=== PATIENT | male | born 1970 | race Caucasian/White ===

== ENCOUNTER 2016-11-28 10:43 | Observation (INO) ==
[2016-11-28] MEDS ORDERED: GI Cocktail 40 ML EACH PO ONE (11:17)
[2016-11-28] MEDS ORDERED: 0.9 % Sodium Chloride 1,000 ML IVC ONE (11:18)
[2016-11-28] MEDS ORDERED: Ondansetron 4 MG/2 ML VIAL IVP ONE ×2 (11:18→12:37)
[2016-11-28 11:45] LABS: Basophils % 0.4 %; Hematocrit 41.1 % (37.5-50.1); Hemoglobin 14.4 g/dL (12.9-16.9); Immature Granulocytes % 0.3 % (0-4); Lymphocytes # 1.5 K/mcL (0.6-4.6); Lymphocytes % 14.5 %; Mean Corpuscular Hemoglobin 32.4 pg (28.0-33.3); Mean Corpuscular Volume 92.6 fL (83.0-100.0); Mean Platelet Volume 9.2 fL (9.4-12.4); Monocytes # 0.7 K/mcL (0.0-1.3); Monocytes % 6.4 %; Neutrophils # 8.2 K/mcL (1.6-8.9); Platelet Count 286 K/mcL (140-400); Red Blood Count 4.44 M/mcL (4.19-5.50); Red Cell Distribution Width 13.3 % (11.5-14.5); Segmented Neutrophils % 78.4 %
[2016-11-28 11:56] LABS: Prothrombin Time 10.7 Seconds (9.4-12.1)
[2016-11-28 11:59] LABS: Activated Partial Thrombo Time 27.1 Seconds (26.0-36.0)
[2016-11-28 12:00] LABS: BUN/Creatinine Ratio 10 (6-26); Blood Urea Nitrogen 11 mg/dL (8-26); Calcium 9.4 mg/dL (8.6-10.8); Carbon Dioxide 27 mEq/L (19-29); Chloride 105 mEq/L (98-109); Glucose 120 mg/dL (70-99); Osmolality,Calculated 293 (280-300); Potassium 3.9 mEq/L (3.5-4.5); Sodium 141 mEq/L (136-145); eGFR For African Americans > 60 (> 60); eGFR For Non-African Americans > 60 (> 60)
--- NOTE | 2016-11-28 12:23 | Emergency Department Note ---
Disposition Clinical Impression: Chest pain Qualifiers: Chest pain type: unspecified Qualified Code(s): R07.9 - Chest pain, unspecified Disposition: Admitted As Inpatient Condition: Good Referrals: NONE,PCP [Non-Partnered Physician] - Forms: ED Satisfaction Letter Chest Pain HPI - General Chief Complaint: ED Chest Pain Stated Complaint: CP Time Seen by Provider: 11/28/16 10:48 Source: patient Limitations: no limitations Vital Signs Reviewed: Yes Nursing Notes Reviewed: Yes - History of Present Illness HPI Narrative: Patient presents for evaluation of chest pain. Chest pain started last night at 12:00 and has associated dyspnea as well as nausea. Patient states that he has not been able to get any rest. His overall symptoms have all healed was at rest. He has not had any previous history of heart disease although heart disease does run in his family. He continues to be uncomfortable with this nausea and pain and wanting to get rest. The patient was given aspirin and nitroglycerin by squad. The nitroglycerin did help relieve his pain. He was given a GI cocktail in the emergency department which not affect his pain in any way. Overall the patient's EKG shows sinus bradycardia with a rate of 50 bpm. The significant elevations depressions or changes. Troponin is negative. Due to the patient's continued symptoms and family history and risk factors the patient will be brought into the hospital for further evaluation and continued monitoring. Severity scale (1-10): 3 - Related Data Home Medications Medication Instructions Recorded Confirmed Omeprazole 03/12/16 03/12/16 TraZODone 03/12/16 Previous Rx's Medication Instructions Recorded Cefdinir [Omnicef] 300 mg PO BID #20 capsule 03/12/16 Ibuprofen [Motrin] 800 mg PO Q8HR PRN #20 tablet 03/12/16 predniSONE [PredniSONE] 20 mg PO BID #10 tablet 03/12/16 Allergies Allergy/AdvReac Type Severity Reaction Status Date / Time No Known Allergies Allergy Verified 03/12/16 12:58 Review of Systems: CONSTITUTIONAL: No weight loss, fever, chills, weakness or fatigue. HEENT: Eyes: No visual changes. Ears, Nose, Throat: No hearing loss, difficulty talking or unable to swallow. SKIN: No rash or itching. CARDIOVASCULAR: Chest pain RESPIRATORY: Shortness of breath GASTROINTESTINAL: Nausea GENITOURINARY: No burning on urination or hematuria. NEUROLOGICAL: No headache, dizziness, syncope, paralysis, ataxia, numbness or tingling in the extremities. No change in bowel or bladder control. MUSCULOSKELETAL: No muscle pain, back pain, joint pain or stiffness. Chest Pain PMH - Past Medical History Medical history: Reports: GERD Psychiatric history: Reports: anxiety, depression - Social History Smoking Status: Current every day smoker Alcohol use: Reports: occasionally Drug use: Reports: none Physical Exam General appearance: NAD, conversant Eyes: anicteric sclerae, moist conjunctivae; PERRL HENT: Atraumatic; oropharynx clear with moist mucous membranes and no mucosal ulcerations Neck: Normal inspection; Trachea midline; FROM, supple Lungs: CTA, with normal respiratory effort and no intercostal retractions CV: RRR, no MRGs Abdomen: Soft, non-tender; no rebound or gaurding Extremities: No peripheral edema or extremity lymphadenopathy Skin: Normal temperature; no rash, ulcers or lesions Psych: Appropriate mood and affect Neuro: alert and oriented to person, place and time - General Limitations: no limitations General appearance: alert, in no apparent distress Course Course Narrative: EKG normal. Troponin negative. D-dimer negative. No abdominal tenderness. Continued symptoms despite treatment. Initial resolution with nitroglycerin. Will repeat that for trial. Patient will be brought in for further evaluation by the hospitalist team. - Consultations Consultation #1: Discussed with the hospitalist Dr. Whelan. Patient accepted for admission. Vital Signs Temperature 98 F 11/28/16 10:45 Pulse Rate 52 11/28/16 10:45 Respiratory Rate 16 11/28/16 10:45 Blood Pressure 129/83 11/28/16 10:45 O2 Sat by Pulse Oximetry 100 11/28/16 10:45 Temperature 98 F 11/28/16 10:45 Pulse Rate 65 11/28/16 12:53 Respiratory Rate 16 11/28/16 12:53 Blood Pressure 134/87 11/28/16 12:53 O2 Sat by Pulse Oximetry 98 11/28/16 12:53 Oxygen Delivery Oxygen Delivery Room Air Chest Pain - Medical Records Medical records reviewed: Yes I reviewed the patient's medical records. - Lab Data Lab results reviewed: Yes I reviewed the patient's lab results. Result diagrams: 11/28/16 11:11 11/28/16 11:11 Lab Results 0711/28/16 11/28/16 Range/Units 11:11 11:11 11:11 WBC 10.4 (4.3-11.1) K/mcL RBC 4.44 (4.19-5.50) M/mcL Hgb 14.4 (12.9-16.9) g/dL Hct 41.1 (37.5-50.1) % MCV 92.6 (83.0-100.0) fL MCH 32.4 (28.0-33.3) pg MCHC 35.0 (31.6-35.5) g/dL RDW 13.3 (11.5-14.5) % Plt Count 286 (140-400) K/mcL MPV 9.2 L (9.4-12.4) fL Immature Gran % 0.3 (0-4) % Seg Neutrophils % 78.4 % Lymphocytes % 14.5 % Monocytes % 6.4 % Eosinophils % 0.0 % Basophils % 0.4 % Neutrophils # 8.2 (1.6-8.9) K/mcL Lymphocytes # 1.5 (0.6-4.6) K/mcL Monocytes # 0.7 (0.0-1.3) K/mcL Eosinophils # 0.0 (0.0-0.6) K/mcL Basophils # 0.0 (0.0-0.2) K/mcL PT 10.7 (9.4-12.1) Seconds INR 1.0 APTT 27.1 (26.0-36.0) Seconds D-Dimer 405 (0-500) ng/mLFEU Sodium (136-145) mEq/L Potassium (3.5-4.5) mEq/L Chloride (98-109) mEq/L Carbon Dioxide (19-29) mEq/L BUN (8-26) mg/dL Creatinine (0.72-1.25) mg/dL Est GFR ( Amer) (> 60) Est GFR (Non-Af Amer) (> 60) BUN/Creatinine Ratio (6-26) Glucose (70-99) mg/dL Calculated Osmolality (280-300) Calcium (8.6-10.8) mg/dL Total Bilirubin (0.2-1.2) mg/dL Direct Bilirubin (0.0-0.5) mg/dL Indirect Bilirubin (0.0-1.2) mg/dL AST (5-34) Units/L ALT (0-55) Units/L Alkaline Phosphatase (38-126) Units/L Troponin I (0-0.03) ng/mL B-Natriuretic Peptide 175 H (0-100) pg/mL Serum Total Protein (6.0-8.3) g/dL Albumin (3.5-5.0) g/dL Globulin (2.4-3.5) g/dL Albumin/Globulin Ratio (1.1-2.2) Lipase (8-78) Units/L 11/28/16 11/28/16 Range/Units 11:11 11:11 WBC (4.3-11.1) K/mcL RBC (4.19-5.50) M/mcL Hgb (12.9-16.9) g/dL Hct (37.5-50.1) % MCV (83.0-100.0) fL MCH (28.0-33.3) pg MCHC (31.6-35.5) g/dL RDW (11.5-14.5) % Plt Count (140-400) K/mcL MPV (9.4-12.4) fL Immature Gran % (0-4) % Seg Neutrophils % % Lymphocytes % % Monocytes % % Eosinophils % % Basophils % % Neutrophils # (1.6-8.9) K/mcL Lymphocytes # (0.6-4.6) K/mcL Monocytes # (0.0-1.3) K/mcL Eosinophils # (0.0-0.6) K/mcL Basophils # (0.0-0.2) K/mcL PT (9.4-12.1) Seconds INR APTT (26.0-36.0) Seconds D-Dimer (0-500) ng/mLFEU Sodium 141 (136-145) mEq/L Potassium 3.9 (3.5-4.5) mEq/L Chloride 105 (98-109) mEq/L Carbon Dioxide 27 (19-29) mEq/L BUN 11 (8-26) mg/dL Creatinine 1.05 (0.72-1.25) mg/dL Est GFR ( Amer) > 60 (> 60) Est GFR (Non-Af Amer) > 60 (> 60) BUN/Creatinine Ratio 10 (6-26) Glucose 120 H (70-99) mg/dL Calculated Osmolality 293 (280-300) Calcium 9.4 (8.6-10.8) mg/dL Total Bilirubin 0.5 (0.2-1.2) mg/dL Direct Bilirubin 0.2 (0.0-0.5) mg/dL Indirect Bilirubin 0.3 (0.0-1.2) mg/dL AST 21 (5-34) Units/L ALT 23 (0-55) Units/L Alkaline Phosphatase 61 (38-126) Units/L Troponin I 0.01 (0-0.03) ng/mL B-Natriuretic Peptide (0-100) pg/mL Serum Total Protein 6.7 (6.0-8.3) g/dL Albumin 3.5 (3.5-5.0) g/dL Globulin 3.2 (2.4-3.5) g/dL Albumin/Globulin Ratio 1.1 (1.1-2.2) Lipase 26 (8-78) Units/L - Radiology Data Radiology results reviewed: Yes I reviewed the patient's radiology results. - EKG Data EKG attestation: Yes I reviewed and interpreted this EKG. EKG results narrative: EKG sinus bradycardia with ventricular rate of 50. IA interval 151. QRS 86. QTC 390. Patient hasan ST elevations or depressions. Patient has nonspecific T -wave changes. No previous EKG for comparison. Heart Score - Score History: Slightly Suspicious EKG: Non Specific repolarisation Disturbance Age: 45-65 Risk Factors: 1-2 risk factors Troponin: Less than normal limit HEART Score Total: 3 Attestation Statement - Attestation Attestation: I personally interviewed and examined this patient and my medical decision- making was reviewed with the Resident Physician, Dr. Monroy I agree with the documented findings, disposition and treatment plan as described except to the extent set forth below. Patient is a 46-year-old male who presents to the emergency room today with symptoms of chest pain since midnight with shortness of breath. Patient was having continued pain throughout the night and difficulty sleeping, and was brought here by EMS this morning with ongoing pain. EMS administered 4 baby aspirin and nitroglycerin trial which relieved patient's pain. Patient has a significant family history for cardiac disease but no other risk factors other than smoking. Patient is pain-free on arrival to the ED. I agree with patient's physical exam findings as documented. Patient's initial EKG showed a sinus bradycardia with no acute ischemic changes. Patient remained hemodynamically stable and pain-free throughout ED course. Patient had no recurrent pain while in the emergency department. Patient feels that rest is what helped his pain go away. Patient had lab evaluation including chest x-ray was all within normal limits including a negative d-dimer and negative initial troponin. Discussed with the patient concerns for his pain and shortness of breath with just seem worsened by exertion and recommended admission for further cardiac evaluation. Patient agrees with this plan and case was discussed with hospitalist.
[2016-11-28] MEDS: Nitroglycerin 0.4 MG TAB.SUBL SL PRN ×2 (12:45→12:53)
[2016-11-28 13:10] LABS: Alanine Aminotransferase 23 Units/L (0-55); Albumin 3.5 g/dL (3.5-5.0); Albumin/Globulin Ratio 1.1 (1.1-2.2); Alkaline Phosphatase 61 Units/L (38-126); Aspartate Amino Transferase 21 Units/L (5-34); Bilirubin,Direct 0.2 mg/dL (0.0-0.5); Bilirubin,Indirect 0.3 mg/dL (0.0-1.2); Bilirubin,Total 0.5 mg/dL (0.2-1.2); Globulin 3.2 g/dL (2.4-3.5); Lipase 26 Units/L (8-78); Total Protein 6.7 g/dL (6.0-8.3)
[2016-11-28] MEDS ORDERED: Ondansetron 4 MG/2 ML VIAL IVP PRN (13:37)
[2016-11-28] MEDS ORDERED: Acetaminophen 325 MG TABLET PO PRN (13:37)
[2016-11-28] MEDS ORDERED: Naloxone 0.4 MG/ML INJ IVP PRN (13:37)
[2016-11-28] MEDS ORDERED: *HR* LORazepam 2 MG/ML VIAL IVP PRN ×2 (13:42)
--- NOTE | 2016-11-28 14:15 | Internal Med History&Physical ---
<Trena Haque - Last Filed: 11/30/16 13:06> Date of Encounter: 11/30/16 Time of Encounter: 14:10 Assessment and Plan (1) Chest pain Status: Acute She has been experiencing midsternal chest pressure as nonradiating with some nausea. He does have a cardiac family history. He has not had a cardiac workup in the past. He does smoke and drinks alcohol. Troponin is negative we will continue cycle troponins and EKG was some slight ST elevations we will repeat EKG right now. 2 continue with aspirin 3 we will obtain a drug screen 4 continue with nitroglycerin 5 continuous cardiac monitoring 6 cardiac echo 7 nothing by mouth after midnight cardiac stress in a.m. 8 consult cardiology as needed 9 lipid panel Qualifiers: Chest pain type: unspecified Qualified Code(s): R07.9 - Chest pain, unspecified (2) Alcohol abuse Status: Acute 1 patient has admitted to drinking both beer and alcohol almost on a daily basis. His last drink was 7 PM last night. We will initiate CIWA protocol (3) Tobacco abuse Status: Acute 1 encourage patients to stop smoking. Nicotine patch (4) DVT prophylaxis Status: Acute 1 Lovenox subcutaneous Internal Medicine - H&P: HPI Chief complaint: CP Admitted From: Emergency Dept Plans for Post Hospital Care: Home History of present illness: Mr. Hooks is a 46 year old male past medical history of GERD tobacco abuse alcohol use. According to patient he was in his usual state of health up until approximately 11 PM last night he began to feel nauseated and experienced midsternal nonradiating chest pressure which was constant no aggravating or relieving factors. He rated pain 5/ 10. He was unable to sleep all night due to the pain. He presented to the ER with above complaints for arrival they did give him nitroglycerin plus a GI cocktail pain was unresolved. Patient does smoke half pack a day as well as he drinks approximately 3 beers every day or every other day. She does drink a bottle of whiskey at least once a month. His last drink was at 7 PM last night. Lab work was unremarkable troponin was 0.0 on chest x-ray with no acute process . He has been admitted for further workup evaluation. Presently patient is to be respiratory distress. He states the pain is aching and constant 5 out of 10. He does have some nausea. Lung sounds are clear heart sounds are regular S1 and S2 with no rubs clicks gallops murmurs noted. He is sinus rhythm and sinus bradycardia on the monitor. EKG with slight ST elevation in 2 3 AVF. we will repeat Vital signs are stable this time. I reviewed case with Dr Whelan who agrees with plan. Past Med Surg Social Fam HX - Past Medical History Medical history: GERD Psychiatric history: anxiety, depression - Social History Smoking Status: Current every day smoker Smokeless Tobacco Status: No Alcohol use: occasionally Drug use: none - Family History Mother Hx Family Cardiac Disorders: Yes (heart disease ) Father Living Status: Still Living Hx Family Cardiac Disorders: Yes ( heart disease ) Internal Medicine - H&P: Meds Omeprazole [PriLOSEC] 40 mg PO DAILY 03/12/16 [History] traZODone [TraZODone] 50 mg PO HS 03/12/16 [History] Aspirin 81 mg PO DAILY #30 11/29/16 [Rx] Gabapentin [Neurontin] 100 mg PO HS #30 capsule 11/29/16 [Rx] Nicotine Patch [Nicoderm] 14 mg TD DAILY #28 11/29/16 [Rx] Allergies No Known Allergies Allergy (Verified 03/12/16 12:58) All Systems PM: A 10-system review of systems was performed and is negative for pertinent findings except as documented above in the HPI. - Constitutional Constitutional: no chills, no fever(s), no night sweats - EENT Eyes: no change in vision, no discharge, no pain, no photophobia Nose, mouth and throat: no dysphagia, no nasal discharge, no neck pain, no sore throat - Cardiovascular Cardiovascular ROS IM: chest pain, no diaphoresis, no dyspnea, no lightheadedness, no palpitations, no syncope - Respiratory Respiratory: no cough, no dyspnea, no wheezing, no excessive phlegm production - Gastrointestinal Gastrointestinal: nausea, no abdominal pain, no diarrhea, no hematemesis, no hematochezia, no melena, no vomiting - Musculoskeletal Musculoskeletal ROS IM: muscle cramps, no numbness, no tingling - Integumentary Integumentary IM: no rash, no unusual bruising - Neurological Neurological ROS: no confusion, no convulsions, no focal weakness, no numbness, no tingling, no tremor(s) - Hematologic/Lymphatic Hematologic/Lymphatic: no easy bruising - Constitutional Vitals: Temp Pulse Resp BP Pulse Ox 98 F 52 16 137/79 96 11/28/16 10:45 11/28/16 13:40 11/28/16 13:40 11/28/16 13:40 11/28/16 13:40 General appearance: Present: A&O X 3, answers questions appropriately - Head Head exam: Present: atraumatic, normocephalic - Eye Eye exam: Present: PERRL, conjuntiva pink, sclera anicteric Pupils: Present: PERRL - Neck Neck exam general surgery: Present: supple, trachea midline. Absent: lymphadenopathy - Respiratory Respiratory exam: Present: CTAB. Absent: accessory muscle use, rales, rhonchi, wheezes - Cardiovascular Cardiovascular exam: Present: RRR, +S1, +S2. Absent: diastolic murmur, gallop, rubs, systolic murmur - GI/Abdominal GI/Abdominal exam: Present: normal bowel sounds, soft, no peritoneal signs. Absent: distended, tenderness - Extremities Exam Extremities exam: Present: warm, radial pulses palpable and symetrical. Absent : calf tenderness, cyanotic, pedal edema - Neurological Exam Neurological exam: Present: CN II-XII intact, oriented X3, no focal deficits. Absent: pronater drift, facial droop, speech deficit - Skin Skin exam: Present: dry, intact Internal Med - H&P Results - Labs CBC & Chem 7: 11/29/16 00:15 11/29/16 00:15 Labs: Short CBC 11/28/16 Range/Units 11:11 WBC 10.4 (4.3-11.1) K/mcL Hgb 14.4 (12.9-16.9) g/dL Hct 41.1 (37.5-50.1) % Plt Count 286 (140-400) K/mcL Neutrophils # 8.2 (1.6-8.9) K/mcL BMP 11/28/16 11:11 Sodium 141 Potassium 3.9 Chloride 105 Carbon Dioxide 27 BUN 11 Creatinine 1.05 Glucose 120 H Calcium 9.4 Cardiac Enzymes 11/28/16 Range/Units 11:11 Troponin I 0.01 (0-0.03) ng/mL Liver Function 11/28/16 Range/Units 11:11 Total Bilirubin 0.5 (0.2-1.2) mg/dL Direct Bilirubin 0.2 (0.0-0.5) mg/dL AST 21 (5-34) Units/L ALT 23 (0-55) Units/L Alkaline Phosphatase 61 (38-126) Units/L Albumin 3.5 (3.5-5.0) g/dL - EKG Data EKG shows normal: sinus rhythm - Impressions ITS Impressions Chest X-Ray 11/28/16 10:52 IMPRESSION: No acute cardiopulmonary abnormality. D/ / Philip Borrego MD / Philip Borrego MD Interpreting Provider: Philip Borrego MD - Diagnostic Studies Other Images Additional comments: Chest X-Ray 11/28/16 10:52 IMPRESSION: No acute cardiopulmonary abnormality. D/ / Philip Borrego MD / Philip Borrego MD Interpreting Provider: Philip Borrego MD <Elizabeth Whelan - Last Filed: 12/01/16 18:05> Date of Encounter: 12/01/16 Assessment and Plan (1) Chest pain Status: Acute Qualifiers: Chest pain type: unspecified Qualified Code(s): R07.9 - Chest pain, unspecified (2) Alcohol abuse Status: Acute (3) Tobacco abuse Status: Acute (4) Peripheral neuropathy Status: Acute Qualifiers: Qualified Code(s): G58.8 - Other specified mononeuropathies Internal Medicine - H&P: HPI History of present illness: Mr. Hooks is a 46 year old male All Systems PM: A 10-system review of systems was performed and is negative for pertinent findings except as documented above in the HPI. - Constitutional Vitals: Temp Pulse Resp BP Pulse Ox 98.5 F 67 16 114/74 98 11/29/16 15:31 11/29/16 15:31 11/29/16 15:31 11/29/16 15:31 11/29/16 15:31 Internal Med - H&P Results - Labs CBC & Chem 7: 11/29/16 00:15 11/29/16 00:15 - Attending Attestation I have personally performed a face to face evaluation on this patient and I discussed the assessment and plan with the nurse practitioner. I have reviewed and agree with the documented care plan. History and Exam by me shows: Mr. Hooks is a 46 year old male past medical history of GERD tobacco abuse alcohol use. According to patient he was in his usual state of health up until approximately 11 PM last night he began to feel nauseated and experienced midsternal nonradiating chest pressure which was constant no aggravating or relieving factors. He rated pain 5/ 10. He was unable to sleep all night due to the pain. He presented to the ER with above complaints for arrival they did give him nitroglycerin plus a GI cocktail pain was unresolved. Patient does smoke half pack a day as well as he drinks approximately 3 beers every day or every other day. She does drink a bottle of whiskey at least once a month. His last drink was at 7 PM last night. Lab work was unremarkable troponin was 0.0 on chest x-ray with no acute process . He has been admitted for further workup evaluation. Pt denied any active chest pain now. Gen : A, A, O x3 Chest: Diminished BS b/l basal regions. No crackles / rales Heart : S1 S2 + RRR, No murmurs a/p 1. Atypical chest pain check serial troponin and put him on tele due to his significant family history of CAD will do stress test in AM 2. Chronic alcohol dependence counseled to quit placed him on [facility] protocol
[2016-11-28] MEDS ORDERED: Aspirin 325 MG TABLET PO ONE (14:29)
[2016-11-28] MEDS: Vitamin B Complex/Vit C/Vit E 1 EACH TABLET PO SCH (15:17)
[2016-11-28] MEDS: Folic Acid 1 MG TABLET PO SCH (15:17)
[2016-11-28] MEDS: *HR* LORazepam 2 MG/ML VIAL IVP PRN ×3 (15:17→21:50)
[2016-11-28] MEDS: Nicotine 14 MG PATCH.TD24 TD SCH (15:17)
--- NOTE | 2016-11-28 18:28 | Electrocardiograph Report ---
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
[2016-11-28] MEDS ORDERED: traZODone 50 MG TABLET PO SCH (21:00)
[2016-11-29 00:22] LABS: Basophils % 0.4 %; Hematocrit 40.4 % (37.5-50.1); Hemoglobin 13.8 g/dL (12.9-16.9); Immature Granulocytes % 0.5 % (0-4); Lymphocytes # 2.1 K/mcL (0.6-4.6); Lymphocytes % 18.9 %; Mean Corpuscular HGB Conc 34.2 g/dL (31.6-35.5); Mean Corpuscular Hemoglobin 31.5 pg (28.0-33.3); Mean Corpuscular Volume 92.2 fL (83.0-100.0); Mean Platelet Volume 8.9 fL (9.4-12.4); Monocytes % 9.3 %; Neutrophils # 7.8 K/mcL (1.6-8.9); Platelet Count 263 K/mcL (140-400); Red Blood Count 4.38 M/mcL (4.19-5.50); Red Cell Distribution Width 13.2 % (11.5-14.5); Segmented Neutrophils % 70.9 %
[2016-11-29 00:37] LABS: BUN/Creatinine Ratio 14 (6-26); Blood Urea Nitrogen 13 mg/dL (8-26); Calcium 9.1 mg/dL (8.6-10.8); Carbon Dioxide 27 mEq/L (19-29); Chloride 107 mEq/L (98-109); Chol/HDL Ratio 4.1 (0-4.9); Cholesterol 187 mg/dL (< 200); Glucose 137 mg/dL (70-99); HDL Cholesterol 46 mg/dL (40-59); LDL Cholesterol,Calculated 94 mg/dL (0-99); Osmolality,Calculated 290 (280-300); Potassium 3.7 mEq/L (3.5-4.5); Sodium 139 mEq/L (136-145); Triglycerides 237 mg/dL (< 150); eGFR For African Americans > 60 (> 60); eGFR For Non-African Americans > 60 (> 60)
[2016-11-29] MEDS: *HR* LORazepam 2 MG/ML VIAL IVP PRN (02:58)
[2016-11-29] MEDS ORDERED: *HR* Enoxaparin 40 MG/0.4 ML SYRINGE SQ SCH (07:00)
[2016-11-29] MEDS: Vitamin B Complex/Vit C/Vit E 1 EACH TABLET PO SCH (08:33)
[2016-11-29] MEDS: Folic Acid 1 MG TABLET PO SCH (08:33)
[2016-11-29] MEDS ORDERED: Aspirin 81 MG TAB.CHEW PO SCH (09:00)
[2016-11-29] MEDS: Nicotine 14 MG PATCH.TD24 TD SCH (09:06)
--- NOTE | 2016-11-29 09:13 | Electrocardiograph Report ---
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
--- NOTE | 2016-11-29 15:32 | Discharge Summary ---
Date of Encounter: 11/29/16 Time of Encounter: 15:26 - Discharge Diagnosis (1) Chest pain Priority: Primary Status: Resolved Qualifiers: Chest pain type: unspecified Qualified Code(s): R07.9 - Chest pain, unspecified (2) Alcohol abuse Priority: Secondary Status: Acute (3) Tobacco abuse Priority: Secondary Status: Acute (4) Peripheral neuropathy Priority: Secondary Status: Acute Qualifiers: Qualified Code(s): G58.8 - Other specified mononeuropathies - Discharge Medications Prescriptions: Aspirin 81 mg PO DAILY #30 Gabapentin [Neurontin] 100 mg PO HS #30 capsule Nicotine Patch [Nicoderm] 14 mg TD DAILY #28 Home Medications: Omeprazole [PriLOSEC] 40 mg PO DAILY 03/12/16 [History] traZODone [TraZODone] 50 mg PO HS 03/12/16 [History] Aspirin 81 mg PO DAILY #30 11/29/16 [Rx] Gabapentin [Neurontin] 100 mg PO HS #30 capsule 11/29/16 [Rx] Nicotine Patch [Nicoderm] 14 mg TD DAILY #28 11/29/16 [Rx] Allergies/Adverse Reactions: Allergies No Known Allergies Allergy (Verified 03/12/16 12:58) Procedures/tests Complete & Pending: Procedures Performed prior 72 hours Category Date Time Status EKG [ECG 12 lead ECG] [ECG] Stat Y 11/28/16 14:20 Completed Date of admission: 11/28/16 14:16 Primary care physician: Lizbet Enrique CNP - Patient Status Disposition: Home, Self-Care Condition: Good - Discharge Instructions Follow Up With: Lizbet Enrique CNP [Primary Care Provider] - - Diet and Activity Activity: increase activity as tolerated Diet: low salt diet Hospital course: Mr. Hooks is a 46 year old male past medical history of GERD, tobacco abuse, and alcohol use presnted to ER y/d c/o epigastric discomfort and chest pain. According to patient he was in his usual state of health up unti approximately 11 PM last night he began to feel nauseated and experienced midsternal nonradiating chest pressure which was constant no aggravating or relieving factors. He rated pain 5/ 10. He was unable to sleep all night due to the pain. He presented to the ER with above complaints for arrival they did give him nitroglycerin plus a GI cocktail pain was unresolved. Patient does smoke half pack a day as well as he drinks approximately 3 beers every day or every other day. She does drink a bottle of whiskey at least once a month. His last drink was at 7 PM night before the admission. Pt was admitted n the hospital and placed him onc ardiac monitor, checked serial troponons. All his troponin came back as negative. His does not have any more chest pain. However due to his significant family history for CAD, we did stress test on him, which came back as negative for any ischemia. Pt also c/o b/l le parasthesia / burning pain . So started him on Neurontin 100mg HS. - Time Spent with Patient Total time spent providing and/or coordinating discharge services: - Constitutional Vitals: Temp Pulse Resp BP Pulse Ox 99.0 F 58 16 134/73 98 11/29/16 10:47 11/29/16 10:47 11/29/16 10:47 11/29/16 10:47 11/29/16 10:47 General appearance: Present: A&O X 3, answers questions appropriately - Head Head exam: Present: atraumatic, normal inspection - Respiratory Respiratory exam: Present: decreased breath sounds. Absent: rales, respiratory distress, rhonchi, wheezes - Cardiovascular Cardiovascular exam: Present: RRR, +S1, +S2. Absent: rubs, systolic murmur - GI/Abdominal GI/Abdominal exam: Present: normal bowel sounds, soft, no peritoneal signs. Absent: distended, tenderness - Extremities Exam Extremities exam: Absent: calf tenderness, pedal edema, tenderness
[2016-11-29 15:33] VITALS: BP 114/74
--- NOTE | 2016-11-29 15:56 | Exercise Stress Test ---
Exercise Stress Name: Ramu Hooks Date of Study: 11/29/2016 Date: 1970 Ht: 71.0in Medical Record#: [id number] Age: 46 Wt: 160.0lb Gender: Male BSA: 1.92 Order #: [id number] Location: [facility] Room #: 3B44 Reading Physician: Yony Otero DO Technologist: Gisselle Cruz [employer] Supervising Provider: Cherry Khan CNP Primary Physician: None Ordering Physician: Patria Vasques CNP Indication: Chest Pain Impressions: Stress ECG is negative for ischemia. Blunted blood pressure response to exercise (peak 112/84). Findings: Normal sinus rhythm at rest. No baseline arrhythmias were noted. Stress ECG is negative for ischemia. No arrhythmias noted during exercise or recovery. The patient demonstrated a blunted response blood pressure response. The exercise capacity was average. No chest pain during stress procedure. History: History of Smoking Family History Stress Test Summary: Stress Test Type: Treadmill Protocol: [place] Baseline Information: Maximum Predicted HR: 173 85% MPHR: 147 Blood Pressure: 104 / 74 Stress Information: Total Exercise Time: 7 13 Test Terminated Due To: Dyspnea Maximum Blood Pressure: 112 / 84 Maximum Heart Rate: 152 Percent Maximum Heart Rate Achieved: 88 Double Product: 36288 METS Reached: 10.1 Symptoms: Shortness of breath Updated by Yony Otero DO, ELIANA SWAN FASNC on 11/29/2016 3:47:16 PM electronically signed on 11/29/2016 3:49:37 PM with status of Final
== END 2016-11-29 17:00 | disposition home or self-care (01) ==
LOC: 3BNU 10:43 → EMEROO 10:43 → 3BNU 14:53
PROVIDERS: ADMIT Nurse Practitioner Family; ATTEND Nurse Practitioner Family